=== PATIENT | female | born 2005 | race Caucasian/White ===

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

== ENCOUNTER 2024-01-24 14:20 | Outpatient (CLI) | payer BC, SELFPAY | END 2024-01-24 14:21 | disposition home or self-care (01) | LOC: NFLDREF 01-28 03:53 | PROVIDERS: PCP Family Medicine; Referring Provider Family Medicine; Visit Provider Family Medicine | DX: Z20.7 Contact with and (suspected) exposure to pediculosis, acariasis and other infestations (principal) | CPT/HCPCS: 87177; 87209 ==

== ENCOUNTER 2024-03-01 07:40 | Outpatient (CLI) | payer BC, SELFPAY ==
--- NOTE | 2024-03-01 08:00 | CRLHL7_ITS ---
For Patients: As a result of the Cures Act, medical imaging exams and procedure reports are released immediately into your electronic medical record. You may view this report before your referring provider. If you have questions, please contact your health care provider. Indication: Chronic sinusitis; nasal congestion; breathing issues Technique: Performed without IV contrast Comparison: None available Findings: Frontal sinuses: Clear. Ethmoid sinuses: Clear. Maxillary sinuses: Clear. The maxillary sinus drainage pathways are patent on both sides. Sphenoid sinuses: Clear, including both sphenoethmoidal recesses. Nasal Cavity: Leftward curvature of the nasal septum with 6 cm left-sided nasal septal spur. Paradoxical turn of the right middle turbinate. Harika bullosa in the middle turbinates. No TMJ abnormalities identified. The visualized portions of the orbits, intracranial contents and upper soft tissue neck are grossly negative. Impression: 1. Clear sinuses. 2. Leftward deviation of the nasal septum with left-sided nasal septal spur. Please note that all CT scans at this facility use dose modulation, iterative reconstruction, and/or weight-based dosing when appropriate to reduce radiation dose to as low as reasonably achievable. Dictated by Darian José MD @ 03/01/2024 12:47:53 PM (Electronically Signed)
== END 2024-03-01 07:41 | disposition home or self-care (01) ==
LOC: CT 07:41
PROVIDERS: PCP Family Medicine; Visit Provider Otolaryngology
DX: J34.89 Other specified disorders of nose and nasal sinuses (principal); J34.2 Deviated nasal septum
CPT/HCPCS: 70486

== ENCOUNTER 2024-04-07 09:27 | Day surgery (SDC) | payer BC, SELFPAY ==
[2024-04-07] VITALS (13 sets, daily range): BP systolic 109–138; BP diastolic 50–100; PULSE 62–110; RESP 14–18; TEMP 36.6–36.7; O2SAT 96–99; BMI 21.7
[2024-04-07] MEDS: SODIUM CHLORIDE 0.9 % (FLUSH) 10 ML SYRINGE IVF (09:40)
[2024-04-07 09:43] LABS: Ur HCG Qualitative* Negative (Negative)
--- NOTE | 2024-04-07 09:55 | W.ANESCHARGE ---
Anesthesia Charges Start Date/Time Anesthesia Start Date: 04/07/24 Anesthesia Start Time: 11:20 Stop Date/Time Anesthesia Stop Date: 04/07/24 Anesthesia Stop Time: 12:14
[2024-04-07] MEDS: 0.9 % SODIUM CHLORIDE 500 ML 500 ML 30 ML IV (10:30)
[2024-04-07] MEDS: OXYMETAZOLINE 0.05% NASAL SPRAY 2 SPRAY NOSTRIL-B (10:45)
[2024-04-07] MEDS: BUPIVACAINE 0.5%/EPINEPHRINE 0.9 MG (30.9 ML) INJECTION (11:33)
[2024-04-07] MEDS: COCAINE HCL 4 % 4 ML SOLUTION NOSTRIL-B (11:33)
[2024-04-07] MEDS: AYR SALINE NASAL GEL 1 APPLIC NOSTRIL-B (11:40)
[2024-04-07] MEDS: MUPIROCIN 1 GM PACKET 1 APPLIC TOPICAL (11:42)
--- NOTE | 2024-04-07 12:26 | W.ANESCHARGE ---
Anesthesia Charges Start Date/Time Anesthesia Start Date: 04/07/24 Anesthesia Start Time: 11:20 Stop Date/Time Anesthesia Stop Date: 04/07/24 Anesthesia Stop Time: 12:14
--- NOTE | 2024-04-07 12:34 | P.ENTPROC_ITS ---
Procedure Note Date of procedure: 04/07/24 Procedure: Preop diagnosis deviated septum, nasal obstruction, nasal headache, bilateral inferior turbinate hypertrophy, right middle turbinate montserrat bullosa, acquired external nasal deformity Postop diagnosis same Procedure nasal septoplasty, submucous partial resection inferior turbinates bilateral, endoscopic partial resection right middle turbinate montserrat bullosa, open reduction nasal fracture Under general endotracheal anesthesia patient was prepped draped usual fashion the nose injected and decongested. A right hemitransfixion incision was made left anterior posterior tunnels were created. A vertical incision was made through the cartilage just anterior to the bone and a right posterior tunnel created. The posterior septal impaction was resected by cutting above and below with an angled scissors removed removing with the Joon forceps. A single piece of bone was trimmed returned to intraseptal space and hemitransfixion closed with 2 4-0 chromic sutures. A stab incision was made anterior the right inferior turbinate a tunnel created with a Jose Luis dissector. The montserrat bone was outfractured a conservative anterior submucous resection performed. The Coblation was used for hemostasis and to cauterize intramurally along the inferior 10%. This was repeated on the left side in identical fashion. This procedure going forward was done with the available assistance of a 0 degree endoscope. The montserrat bullosa on the right side was incised with a 15 blade and then the bone infractured with a Joon forceps. Silastic stents were secured with 3-0 nylon. A stab incision was made along the nasal rim just above the it anterior head of the right inferior turbinate. The Granville dissector was used to elevate along the base of the nose. A baseline osteotomy was performed the nose infractured achieving good symmetry to the nose. External dressing consisting of benzoin and Steri tape was applied. Merocel packing coated in Bactroban was placed in each side nose. The patient procedure was taken recovery in satisfactory condition. Blood loss was less than 20 mL. Surgeon: Abimael Krishnan MD
== END 2024-04-07 14:06 | disposition home or self-care (01) ==
LOC: OR 09:29
PROVIDERS: Anesthesiology; PCP Family Medicine; Visit Provider Otolaryngology
PROC: 0NSBXZZ Reposition Nasal Bone, External Approach (ICD-10-PCS; CPT 30520; principal; 2024-04-07 10:45)
PROC: (CPT 31231; 2024-04-07 10:45)
DX: J34.2 Deviated nasal septum (principal); J34.3 Hypertrophy of nasal turbinates; M95.0 Acquired deformity of nose; R51.9 Headache, unspecified
CPT/HCPCS: 30520; 30140; 31240; 21330; 00160; 81025; A9270; J0330; J1100; J2405; J2704; J3010; J3490; J7030

== ENCOUNTER 2025-04-02 16:04 | Outpatient (CLI) | payer BC, SELFPAY | END 2025-04-02 16:05 | disposition home or self-care (01) | PROVIDERS: PCP Family Medicine; Visit Provider Family Medicine | DX: R23.3 Spontaneous ecchymoses (principal); R79.82 Elevated C-reactive protein (CRP); Q79.60 Ehlers-Danlos syndrome, unspecified; Z83.2 Family history of diseases of the blood and blood-forming organs and certain disorders involving the immune mechanism | CPT/HCPCS: 80053; 86038; 86140 ==

== ENCOUNTER 2025-04-10 13:27 | Outpatient (CLI) | payer BC, SELFPAY ==
--- NOTE | 2025-04-10 13:45 | CRLHL7_ITS ---
For Patients: As a result of the Century Cures Act, medical imaging exams and procedure reports are released immediately into your electronic medical record. You may view this report before your referring provider. If you have questions, please contact your health care provider. INDICATION: Paresthesias TECHNIQUE: Noncontrast sagittal and axial T1, T2, and sagittal STIR sequences are provided. No comparisons. FINDINGS: The overall stature, alignment and intrinsic marrow signal of the lumbar spine is within normal limits. Conus is normal. No suspicious disc bulges or protrusions. No suspicious central canal or foraminal narrowing. IMPRESSION: Unremarkable MRI of the lumbar spine. Dictated by Carter East MD @ 04/10/2025 3:12:47 PM (Electronically Signed)
== END 2025-04-10 13:28 | disposition home or self-care (01) ==
LOC: MRI 13:27
PROVIDERS: PCP Family Medicine; Visit Provider Family Medicine
DX: R20.2 Paresthesia of skin (principal)
CPT/HCPCS: 72148

== ENCOUNTER 2025-05-02 14:42 | Outpatient (CLI) | payer BC, SELFPAY | END 2025-05-02 14:43 | disposition home or self-care (01) | PROVIDERS: PCP Family Medicine; Visit Provider Family Medicine | DX: Q79.60 Ehlers-Danlos syndrome, unspecified (principal) | CPT/HCPCS: 93306 ==